=== PATIENT | male | born 2000 | race Caucasian/White ===

== ENCOUNTER 2023-07-09 16:27 | Emergency (ER) | payer SELFPAY ==
[~2023-07-09] VITALS: Ht 190.5 cm; Wt 84.5 kg
[2023-07-09 16:35] VITALS: BP 131/73; PULSE 73; RESP 18; O2SAT 98
[2023-07-09] MEDS ORDERED: PROCHLORPERAZINE EDISYLATE 5 MG/ML 2ML VIAL IV ONE (17:30)
[2023-07-09] MEDS ORDERED: PANTOPRAZOLE 40 MG/10 ML VIAL INJ IV ONE (17:30)
[2023-07-09] MEDS ORDERED: SODIUM CHLORIDE 0.9% 1,000 ML IVB ONE (17:30)
[2023-07-09 17:56] LABS: Basophils # (auto) 0 10 ^3/uL (0-0.2); Basophils % (auto) 0.2 % (0.0-2.0); Eosinophils # (auto) 0 10 ^3/uL (0-0.8); Hematocrit 48.7 % (41.0-53.0); Hemoglobin 16.5 g/dL (13.5-17.5); Lymphocytes # (auto) 1.7 10 ^3/uL (0.4-5.4); Lymphocytes % (auto) 14.6 % (10.0-50.0); Mean Corpuscular Hemoglobin 31.3 pg (28.0-32.0); Mean Corpuscular Hgb Conc. 33.9 g/dL (32.0-36.0); Mean Corpuscular Volume 92.2 fL (80.0-100.0); Monocytes # (auto) 0.8 10 ^3/uL (0-1.3); Monocytes % (auto) 6.8 % (0.0-12.0); Neutrophils # (auto) 9.1 10 ^3/uL (1.6-8.6); Neutrophils % (auto) 78.4 % (37.0-80.0); Nucleated Red Blood Cells % 0.3 %; Red Blood Cells 5.28 10^6/uL (4.5-5.90); Red Cell Distribution Width 13.5 % (11.8-14.3); White Blood Cell 11.7 10^3/uL (4.4-10.8)
[2023-07-09 18:16] LABS: Alanine Aminotransferase 18 U/L (7-40); Albumin 5.6 g/dL (3.2-4.8); Alkaline Phosphatase 60 U/L (46-116); Anion Gap 7 (5-15); Aspartate Aminotransferase 13 U/L (13-40); BUN/Creatinine Ratio 6.3 (10.0-20.0); Blood Urea Nitrogen 6 mg/dL (9-23); Calcium 10.4 mg/dL (8.7-10.4); Carbon Dioxide 31 mmol/L (20-30); Chloride 102 mmol/L (98-107); Glucose 110 mg/dL (74-106); Lipase 85 U/L (12-53); Potassium 4.4 mmol/L (3.5-5.1); Sodium 140 mmol/L (136-145)
[2023-07-09 18:17] LABS: Total Protein 8.4 g/dL (5.7-8.2)
[2023-07-09] MEDS ORDERED: METR-344 PO (19:08)
[2023-07-09] MEDS ORDERED: PANT40TA2 PO (19:08)
[2023-07-09] MEDS ORDERED: ZOFR4T PO (19:08)
[2023-07-09 19:19] LABS: Urine Bacteria NONE SEEN /hpf (None Seen); Urine Blood Negative /uL (Negative); Urine Clarity CLOUDY (Clear); Urine Color Yellow (Yellow); Urine Mucus FEW (None Seen); Urine Protein, UAD 1+ (Negative); Urine Specific Gravity 1.026 (1.001-1.035); Urine WBC 18 /hpf (0 - 3); Urine WBC Clumps PRESENT /hpf (None Seen); Urine pH 8.5 (5.0-8.0)
== END 2023-07-09 19:52 | disposition home or self-care (01) ==
LOC: EDBD 16:27 → ER 16:27
DX: R11.15 Cyclical vomiting syndrome unrelated to migraine (principal); K57.32 Diverticulitis of large intestine without perforation or abscess without bleeding; R74.01 Elevation of levels of liver transaminase levels; F12.10 Cannabis abuse, uncomplicated
CPT/HCPCS: 36415; 74176; 80053; 81001; 83690; 85025